=== PATIENT | female | born 1960 | race Caucasian/White ===

== ENCOUNTER 2016-07-17 09:31 | Day surgery (SDC) | payer BC ==
[~2016-07-17 09:31] MED LIST: LACTATED RINGERS 1,000 ML IV SCH; LIDOCAINE 1% 20 ML VIAL (10MG/ML) FOR IV START INTRADERMA PRN
[2016-07-17 10:30] VITALS: RESP 16; TEMP 98.1
[2016-07-17] MEDS ORDERED: LIDOCAINE 1% INJ 10MG/ML (20 ML MDV) ONE (11:07)
[2016-07-17] MEDS ORDERED: PROPOFOL 10 MG/ML 20 ML VIAL IV ONE (11:07)
--- NOTE | 2016-07-17 11:26 | P.PCN ---
Date of Procedure: 07/17/16 Preoperative Diagnosis: Postoperative Diagnosis: Procedure(s) Performed: BRIEF HISTORY: Patient is a 55-year-old pleasant 8 female, scheduled for an elective colonoscopy as a part of screening for colorectal neoplasia. PROCEDURE PERFORMED: Colonoscopy. PREOPERATIVE DIAGNOSIS: Screening or colon cancer. IV sedation per Anesthesia. PROCEDURE: After informed consent was obtained, the patient, was brought into the endoscopy unit. IV sedation was administered by Anesthesia under continuous monitoring. Digital rectal examination was normal. Initially the Olympus CF- 160 flexible video colonoscope was then inserted in the rectum, gradually advanced into the cecum without any difficulty. Careful examination was performed as the scope was gradually being withdrawn. Ileocecal valve and the appendiceal orifice were visualized and appeared normal. Prep was excellent. Mucosa of the cecum, ascending colon, transverse colon, descending colon, sigmoid colon, and rectum appeared normal. Scattered diffuse diverticulosis seen. Retroflexion was performed in the rectum and small internal hemorrhoids were seen. The patient tolerated the procedure well. IMPRESSION: Normal-appearing colon from rectum to cecwith no evidence of colorectal neoplasia Scattered diffuse diverticulosis Small internal hemorrhoids RECOMMENDATIONS: Findings of this examination were discussed with the patient as well as her family. She was advised to have a repeat screening colonoscopy in 10 years. Implants: Indications for Procedure: Operative Findings: Description of Procedure:
[2016-07-17 11:42] VITALS: BP 132/83; PULSE 66
== END 2016-07-17 12:04 | disposition home or self-care (01) ==
LOC: ORWHC2ENDO 09:31
PROVIDERS: ATTEND Internal Medicine Gastroenterology
DX: Z12.11 Encounter for screening for malignant neoplasm of colon (principal); K57.30 Diverticulosis of large intestine without perforation or abscess without bleeding; K64.8 Other hemorrhoids; E07.9 Disorder of thyroid, unspecified; K21.9 Gastro-esophageal reflux disease without esophagitis; Z79.899 Other long term (current) drug therapy; Z88.5 Allergy status to narcotic agent; Z88.0 Allergy status to penicillin; Z91.040 Latex allergy status
CPT/HCPCS: J2001; J2704; G0121

== ENCOUNTER → 2017-02-06 | Outpatient (CLI) | payer BC ==
--- NOTE | 2017-02-06 09:19 | MM ---
Reason for exam: additional evaluation requested from abnormal screening. Last mammogram was performed less than 1 month ago. History: Patient is postmenopausal. Family history of breast cancer in maternal grandmother at age 79. Physical Findings: Nurse did not find any significant physical abnormalities on exam. MG 3D Work Up W/Cad LT CC and MLO view(s) were taken of the left breast. Prior study comparison: January 27, 2017, bilateral MG screening mammo w CAD. November 03, 2015, bilateral MG screening mammo w CAD. Nodular density persists 3.1cm from nipple. These results were verbally communicated with the patient and result sheet given to the patient on 02/06/17. ASSESSMENT: Incomplete: need additional imaging evaluation, BI-RAD 0 RECOMMENDATION: Ultrasound of the left breast.
--- NOTE | 2017-02-06 09:21 | USB ---
Reason for exam: additional evaluation requested from abnormal screening. History: Patient is postmenopausal. Family history of breast cancer in maternal grandmother at age 79. US Breast Workup Limited LT Left breast ultrasound demonstrates two oval, cystic lesions at 3 o'clock measuring 7 x 3 x 8mm and 5 x 3 x 4mm. These results were verbally communicated with the patient and result sheet given to the patient on 02/06/17. ASSESSMENT: Probably benign, BI-RAD 3 RECOMMENDATION: Follow-up diagnostic mammogram and ultrasound of the left breast in 6 months.
== END ==
LOC: RADMAMWWP 07:27
PROVIDERS: ATTEND Family Medicine
DX: R92.8 Other abnormal and inconclusive findings on diagnostic imaging of breast (principal)
CPT/HCPCS: 76642; G0206; G0279

== ENCOUNTER → 2017-04-07 | Outpatient (CLI) | payer BC ==
--- NOTE | 2017-04-07 14:47 | CT ---
EXAMINATION TYPE: CT abdomen pelvis wo con DATE OF EXAM: 04/07/2017 HISTORY: Hematuria for [address] DLP: 1086.10 mGycm. Automated Exposure Control for Dose Reduction was Utilized. TECHNIQUE: CT scan of the abdomen and pelvis is performed without oral or IV contrast. COMPARISON: NONE FINDINGS: Within the limitations of a non-contrast study, the following observations are made. LUNG BASES: Dependent atelectasis is present bilaterally. There is additional linear scarring or atel ectasis centrally in the right lung base. LIVER/GB: Liver is heterogeneously hypodense consistent with marked diffuse fatty infiltration. PANCREAS: No significant abnormality is seen. SPLEEN: No significant abnormality is seen. ADRENALS: No significant abnormality is seen. KIDNEYS: No renal stones or hydronephrosis is present bilaterally. No intraluminal calculus is seen i n poorly distended bladder. BOWEL: There are diverticula scattered throughout the colon most prominent involving the sigmoid colo n. There is no CT evidence for acute diverticulitis. There is no suspicious small or large bowel dila tation. GENITAL ORGANS: No gross abnormality seen. LYMPH NODES: No greater than 1cm abdominal or pelvic lymph nodes are appreciated. Slightly prominent but subcentimeter lymph nodes in the right lower quadrant mesentery. OSSEOUS STRUCTURES: There is facet arthropathy lower lumbar levels. OTHER: There is small fat-containing left inguinal hernia. IMPRESSION: No renal stones or hydronephrosis is seen bilaterally. No significant finding is seen to account for patient's symptoms of hematuria.
== END ==
LOC: RADCTMAIN 13:37
PROVIDERS: ATTEND Family Medicine
DX: R31.9 Hematuria, unspecified (principal)
CPT/HCPCS: 74176

== ENCOUNTER → 2017-04-18 | Outpatient (CLI) | payer BC ==
--- NOTE | 2017-04-19 08:24 | XR ---
EXAMINATION TYPE: XR foot complete RT DATE OF EXAM: 04/18/2017 COMPARISON: NONE HISTORY: Plantar fasciitis right heel pain lateral foot pain TECHNIQUE: Three-view right foot FINDINGS: Mild hallux valgus deformity is present. Small plantar calcaneal heel spur is present. No a cute fractures are evident. Soft tissues appear normal. No swelling is identified. Joint spaces are p reserved. IMPRESSION: 1. No acute osseous abnormality. 2. Plantar calcaneal heel spur. 3. Mild hallux valgus deformity.
== END | disposition home or self-care (01) ==
LOC: RADXRMAIN 15:58
PROVIDERS: ATTEND Family Medicine
DX: M77.31 Calcaneal spur, right foot (principal); M21.071 Valgus deformity, not elsewhere classified, right ankle

== ENCOUNTER → 2017-09-19 | Outpatient (CLI) | payer BC ==
--- NOTE | 2017-09-19 10:07 | MM ---
Reason for exam: follow-up at short interval from prior study. Last mammogram was performed 7 months ago. History: Patient is postmenopausal. Family history of breast cancer in maternal grandmother at age 79. Took hormonal contraceptives beginning at age 19. Physical Findings: Nurse did not find any significant physical abnormalities on exam. MG Diagnostic Mammo LT w CAD CC and MLO view(s) were taken of the left breast. Technologist: Maria Guadalupe Hernandez RT (R)(M) Prior study comparison: February 06, 2017, left breast MG 3d work up w/cad LT. January 27, 2017, bilateral MG screening mammo w CAD. There are scattered fibroglandular densities. Focal asymmetry left upper outer quadrant, stable in size, somewhat less discrete. No significant new findings when compared with previous films. These results were verbally communicated with the patient and result sheet given to the patient on 09/19/17. ASSESSMENT: Probably benign, BI-RAD 3 RECOMMENDATION: Follow-up diagnostic mammogram of both breasts in 6 months.
--- NOTE | 2017-09-19 10:08 | USB ---
Reason for exam: follow-up at short interval from prior study. History: Patient is postmenopausal. Family history of breast cancer in maternal grandmother at age 79. Took hormonal contraceptives beginning at age 19. US Breast LT Left complete breast ultrasound includes all four quadrants, the retroareolar region and axilla. Finding demonstrates a 0.7 x 0.3 x 0.7cm cystic lesion at 3 o'clock and a 0.4 x 0.3 x 0.3cm cystic lesion at 3 o'clock. These results were verbally communicated with the patient and result sheet given to the patient on 09/19/17. ASSESSMENT: Probably benign, BI-RAD 3 RECOMMENDATION: Follow-up diagnostic mammogram of both breasts in 6 months.
== END | disposition home or self-care (01) ==
LOC: RADMAMWWP 08:44
PROVIDERS: ATTEND Family Medicine
DX: R92.2 Inconclusive mammogram (principal)
CPT/HCPCS: 77065

== ENCOUNTER → 2018-05-26 | Outpatient (CLI) | payer BC ==
--- NOTE | 2018-05-27 07:52 | MM ---
Reason for exam: follow-up at short interval from prior study. Last mammogram was performed 8 months ago. History: Patient is postmenopausal. Family history of breast cancer in maternal grandmother at age 79. Took hormonal contraceptives beginning at age 19. Physical Findings: Nurse did not find any significant physical abnormalities on exam. MG Diagnostic Mammo w CAD [facility] Bilateral CC and MLO view(s) were taken. Prior study comparison: September 19, 2017, left breast MG diagnostic mammo LT w CAD. February 06, 2017, left breast MG 3d work up w/cad LT. The breast tissue is heterogeneously dense. This may lower the sensitivity of mammography. There is chronic nodularity in the left breast. No significant new findings when compared with previous films. These results were verbally communicated with the patient and result sheet given to the patient on 05/26/18. ASSESSMENT: Benign, BI-RAD 2 RECOMMENDATION: Routine screening mammogram of both breasts in 1 year.
--- NOTE | 2018-05-27 15:39 | BD ---
EXAMINATION TYPE: Axial Bone Density DATE OF EXAM: 05/26/2018 COMPARISON: 2016 CLINICAL HISTORY: osteoporosis Height: 5'6 1/2 Weight: 180 FRAX RISK QUESTIONS: Secondary Osteoporosis: 3. Menopause before 45: y RISK FACTORS HISTORY OF: Family History of Osteoporosis: y Postmenopausal woman: y MEDICATIONS: Thyroid Medications: Which medication: Levothyroxine How Lon years Osteoporosis Medications: Which medication: Evista How Lon years Additional Medications: rocsea, acid reflux, cholesterol Additional History: EXAM MEASUREMENTS: Bone mineral densitometry was performed using the [employer] System. Bone mineral density as measured about the Lumbar spine is: ----- L1-L4(G/cm2): 0.896 T Score Values are as follows: ----- L2: -2.7 ----- L3: -2.4 ----- L4: -1.8 ----- L1-L4: -2.4 Bone mineral density has: Decreased -1.6ince study of: 11/03/2015 Bone mineral density about the R hip (g/cm2): 0.797 Bone mineral density about the L hip (g/cm2): 0.791 T Score values are as follows: -----R Neck: -1.7 -----L Neck: -1.8 -----R Total: -1.6 -----L Total: -1.6 Bone mineral density has: Decreased -3.8ince study of: 11/03/2015 IMPRESSION: Osteopenia (T Score between -2.5 and -1). Values approach osteoporosis with regards to the lumbar spi ne although 2 contiguous vertebrae do not demonstrate fitting T scores. There is slightly increased risk of fracture and the patient may be considered for treatment. Re-Screen 2-5 years. NOTE: T-SCORE=SD OF THE YOUNG ADULT MEAN.
== END | disposition home or self-care (01) ==
LOC: RADMAMWWP 15:32
PROVIDERS: ATTEND Family Medicine
DX: R92.8 Other abnormal and inconclusive findings on diagnostic imaging of breast (principal); M81.0 Age-related osteoporosis without current pathological fracture; M85.851 Other specified disorders of bone density and structure, right thigh; M85.852 Other specified disorders of bone density and structure, left thigh
CPT/HCPCS: 77066; 77080

== ENCOUNTER → 2019-09-17 | Outpatient (CLI) | payer BC ==
--- NOTE | 2019-09-20 10:33 | MM ---
Reason for exam: screening (asymptomatic). Last mammogram was performed 1 year and 4 months ago. History: Patient is postmenopausal. Family history of breast cancer in maternal grandmother at age 79. Took hormonal contraceptives beginning at age 19. Physical Findings: A clinical breast exam by your physician is recommended on an annual basis and results should be correlated with mammographic findings. MG Screening Mammo w CAD Bilateral CC and MLO view(s) were taken. Prior study comparison: May 26, 2018, bilateral MG diagnostic mammo w CAD [facility]. September 19, 2017, left breast MG diagnostic mammo LT w CAD. The breast tissue is heterogeneously dense. This may lower the sensitivity of mammography. There is chronic nodularity in the left breast is stable. No significant changes when compared with prior studies. ASSESSMENT: Benign, BI-RAD 2 RECOMMENDATION: Routine screening mammogram of both breasts in 1 year.
== END | disposition home or self-care (01) ==
LOC: RADMAMWWP 15:54
PROVIDERS: ATTEND Family Medicine
DX: Z12.31 Encounter for screening mammogram for malignant neoplasm of breast (principal)
CPT/HCPCS: 77067

== ENCOUNTER → 2020-09-25 | Outpatient (CLI) | payer BC ==
--- NOTE | 2020-09-25 12:13 | ECHOF ---
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 This was a technically adequate study. The left ventricular size is normal. Left ventricular wall thickness is normal. Overall left vent ricular systolic function is normal with, an EF between 55 - 60 %. The diastolic filling pattern is normal for the age of the patient 6.45. The right ventricle is normal in size. Normal LA size by volume 22+/-6 ml/m2. The right atrial size is normal. Interatrial and interventricular septum intact. There is no evidence of aortic regurgitation. There is no evidence of aortic stenosis. Mild mitral regurgitation is present. Mild tricuspid regurgitation present. There is no evidence of pulmonary hypertension. There is no pulmonic regurgitation present. The aortic root size is normal. IVC Not well visulized. There is no pericardial effusion. CONCLUSIONS -------- 1. The left ventricular size is normal. 2. Left ventricular wall thickness is normal. 3. Overall left ventricular systolic function is normal with, an EF between 55 - 60 %. 4. The diastolic filling pattern is normal for the age of the patient 6.45 5. Mild mitral regurgitation is present. 6. Mild tricuspid regurgitation present. TECHNICAL DOCUMENT WRITER: Jewels Bowman [facility]
--- NOTE | 2020-09-25 12:30 | P.STRESS ---
- Stress Test Note Stress Test Results/Findings: Exam Performed: stress echo exercise Exam Date: 09/25/20 Reason for Exam: Chest Pain Height: 5 ft 8 in Weight: 99.79 kg Protocol: Jd Stage: 3 Duration of Exercise: 7:41 Resting Heart Rate: 77 Resting Blood Pressure: 148/76 Maximum Achieved Heart Rate: 153 Maximum Achieved Blood Pressure: 162/76 85% PMHR: 138 100% PMHR: 167 METS: 8.9 Technologist Comment: Stress Test Results/Findings: Patient underwent exercise stress echo with a Jd protocol treadmill stress test. Patient exercised into Stage 3 for a total of 7 minutes 41 seconds reaching a total of 8.9 METS. Patient's maximum heart rate was 153 which represented 92 % age-predicted maximum heart rate. There is no chest pain during stress test. Stress EKG portion: At baseline patient's EKG showed normal sinus rhythm, normal axis, nonspecific minimal 0.[address] depressions in the inferior and lateral leads. At peak exer cise, EKG showed mild accentuation of baseline EKG abnormalities with up to 0.[address] depressions in the inferolateral leads which is nondiagnostic given baseline EKG abnormalities.. Stress echo portion: 2-D echocardiogram was performed in the parasternal long, personal short, apical 2 and apical four-chamber views at rest, peak exercise and in recovery. At baseline, echocardiogram showed left ventricular ejection fraction 55% without wall motion abnormalities. With peak exercise, echocardiogram shows improvement in left ventricular ejection fraction, increase contractility, decrease in left ventricular dimension without wall motion abnormalities consistent with a normal response to exercise. Conclusions: 1. Nondiagnostic stress EKG portion secondary to baseline EKG abnormalities. 2. Normal stress echo response to exercise without evidence of inducible ischemia. 3. Fair exercise capacity. 4. Normal left ventricular ejection fraction 55%
== END | disposition home or self-care (01) ==
LOC: RADNMMAIN 09:50
PROVIDERS: ATTEND Family Medicine
DX: I08.1 Rheumatic disorders of both mitral and tricuspid valves (principal)
CPT/HCPCS: 93306; 93351

== ENCOUNTER → 2020-10-12 | Outpatient (CLI) | payer BC ==
--- NOTE | 2020-10-16 12:29 | MM ---
Reason for exam: screening (asymptomatic). Last mammogram was performed 1 year and 1 month ago. History: Patient is postmenopausal. Family history of breast cancer in maternal grandmother at age 79. Took hormonal contraceptives beginning at age 19. Physical Findings: A clinical breast exam by your physician is recommended on an annual basis and results should be correlated with mammographic findings. MG Screening Mammo w CAD Bilateral CC and MLO view(s) were taken. Prior study comparison: September 17, 2019, bilateral MG screening mammo w CAD. May 26, 2018, bilateral MG diagnostic mammo w CAD [facility]. September 19, 2017, left breast MG diagnostic mammo LT w CAD. January 27, 2017, bilateral MG screening mammo w CAD. There are scattered fibroglandular densities. No significant changes when compared with prior studies. ASSESSMENT: Benign, BI-RAD 2 RECOMMENDATION: Routine screening mammogram of both breasts in 1 year.
== END | disposition home or self-care (01) ==
LOC: RADMAMWWP 15:57
PROVIDERS: ATTEND Family Medicine
DX: Z12.31 Encounter for screening mammogram for malignant neoplasm of breast (principal); Z78.0 Asymptomatic menopausal state; Z79.3 Long term (current) use of hormonal contraceptives; Z80.3 Family history of malignant neoplasm of breast
CPT/HCPCS: 77067